=== PATIENT | female | born 1995 | race African-American/Black ===

== ENCOUNTER 2017-03-24 15:05 | Inpatient (IN) | payer OTHER ==
[2017-03-24 16:10] LABS: BASOPHIL 0.5 % (0-2.0); EOSINOPHIL 1.8 % (0-4.5); MCH 30.8 pg (25.7-33.7); MCHC 33.4 g/dl (32.0-36.0); MEAN CELL VOLUME 92.2 fl (80-96); MEAN PLT VOLUME 8.7 fl (7.5-11.1); NEUTROPHILS 56.9 % (42.8-82.8); PLATELET COUNT 205 K/MM3 (134-434); RDW 13.6 % (11.6-15.6); WHITE BLOOD COUNT 8.6 K/mm3 (4.0-10.0)
[2017-03-24 16:29] LABS: INR 0.86 (0.82-1.09); PROTHROMBIN TIME (PATIENT) 9.4 SEC (9.98-11.88)
[2017-03-24 16:32] LABS: ACTIVATED PTT 28.5 SECONDS (26.9-34.4)
[2017-03-24 16:41] LABS: URINE APPEARANCE CLOUDY; URINE BILIRUBIN NEGATIVE (NEGATIVE); URINE BLOOD NEGATIVE (NEGATIVE); URINE COLOR DKYELLOW; URINE GLUCOSE (UA) NEGATIVE (NEGATIVE); URINE KETONE NEGATIVE (NEGATIVE); URINE LEUK ESTERASE NEGATIVE (NEGATIVE); URINE NITRITE NEGATIVE (NEGATIVE); URINE UROBILINOGEN NEGATIVE mg/dL (0.2-1.0)
[2017-03-24] MEDS: ELECTROLYTE-148 SOLN 1,000 ML IV SCH (16:45)
[2017-03-24 16:47] LABS: URINE PROTEIN 3+ (NEGATIVE)
[2017-03-24 16:58] LABS: GRANULAR CASTS 3 /lpf; URINE BACTERIA RARE /hpf (NONE SEEN); URINE MUCUS FEW; URINE RBC 6 /hpf (0-3); URINE WBC 10 /hpf (3-5)
[2017-03-24] MEDS ORDERED: LABETALOL HCL 5 MG/1 ML (100MG/20 ML VIAL) IVPB ONE (17:00)
[2017-03-24] MEDS ORDERED: PROMETHAZINE HCL 25 MG/1 ML VIAL IVPB ONE (17:15)
[2017-03-24] MEDS: MAGNESIUM 4GM/H20 - 100 ML IVPB SCH (17:15)
[2017-03-24] MEDS ORDERED: BUTORPHANOL TARTRATE 1 MG/ML VIAL IVPB ONE (17:15)
--- NOTE | 2017-03-24 17:31 | HP ---
Past Medical History - Primary Care Physician PCP:: David Rey - Admission Chief Complaint: 34 weeks, severe pih History of Present Illness: 21yo f g1 p 0 34 weeks gestation, ltransfer aroun 29 weeks from [facility] to [facility], , seen in clinic today with elevated BP and headace., bp here 162/100. 130 /100, 3+ protein in urine , c/o headache, no blurred vision, no RUQ pain, History Source: Family Member Limitations to Obtaining History: Language Barrier - Past Surgical History Hx Myomectomy: No Hx Transabdominal Cerclage: No - Smoking History Have you smoked in the past 12 months: No - Alcohol/Substance Use Hx Alcohol Use: No - Social History Usual Living Arrangement: Yes: Alone History of Recent Travel: No Home Medications - Allergies Allergies/Adverse Reactions: Allergies Allergy/AdvReac Type Severity Reaction Status Date / Time No Known Allergies Allergy Verified 03/24/17 16:03 - Home Medications Home Medications: Ambulatory Orders Ferrous Sulfate [Feosol] 1 tab PO DAILY 03/24/17 Vit/Iron Fumarate/FA [ Tablet] 1 tab PO DAILY 03/24/17 Review of Systems - Review of Systems Constitutional: reports: Weakness Eyes: reports: No Symptoms HENT: reports: No Symptoms Neck: reports: No Symptoms Cardiovascular: reports: No Symptoms Respiratory: reports: No Symptoms Gastrointestinal: reports: No Symptoms Breasts: reports: No Symptoms Reported Musculoskeletal: reports: No Symptoms Integumentary: reports: No Symptoms Neurological: reports: Headache Endocrine: reports: No Symptoms Hematology/Lymphatic: reports: No Symptoms Psychiatric: reports: No Symptoms Physical Exam - Maternity Vital Signs: Vital Signs Temperature Pulse Rate 62 03/24/17 15:56 Respiratory Rate 18 03/24/17 15:56 Blood Pressure 162/100 03/24/17 15:56 O2 Sat by Pulse Oximetry (%) Constitutional: Yes: Other (swellen face) Eyes: Yes: WNL HENT: Yes: WNL Neck: Yes: WNL Cardiovascular: Yes: WNL Lungs: Clear to auscultation Breast(s): Yes: WNL - Abdominal Exam/OB Fundal Height: 34 Number of Fetuses: Single Presentation: Vertex Contractions: No Intensity: Unaware Heart Rate Location: [facility] Category: I Accelerations: Uniform Decelerations: None - Vaginal Exam/OB Vaginal Bleediing: No Speculum Exam: No Dilatation (cm): closed Effacement (%): 0 Amniotic Membrane Status: Intact Presentation: Vertex/Position Station: -4 - Physical Exam Musculoskeletal: Yes: WNL Extremities: Yes: WNL Edema: Yes Edema: LLE: 3+, RLE: 3+ Deep Tendon Reflex Grade: Normal but brisk +3 ...Motor Strength: WNL Psychiatric: Yes: WNL - Labs Lab Results: CBC, BMP 03/24/17 15:30 Problem List - Problems (1) with 34 completed weeks gestation Code(s): Z3A.34 - 34 WEEKS GESTATION OF (2) PIH ( induced hypertension), antepartum Code(s): O13.9 - GESTATIONAL HTN W/O SIGNIFICANT PROTEINURIA, UNSP TRIMESTER Assessment/Plan admit, monitor BP, Mg sulfate, labetalol to keep diastolic BP less than 105mmhg prn. nonfavarable cervix for induction, delivery advised, ullternatives and induction discussed risksand benfit discussed . risks of prematurity and complication discussed via hris coordinator
[2017-03-24 17:43] LABS: ALBUMIN 1.9 g/dl (3.4-5.0); ALK PHOS 128 U/L (45-117); ANION GAP 7 (8-16); BILIRUBIN,TOTAL 0.1 mg/dL (0.2-1.0); CALCIUM 8.8 mg/dL (8.5-10.1); CO2 24 mmol/L (21-32); CREATININE 0.8 mg/dL (0.55-1.02); GLUCOSE,RANDOM 74 mg/dL (74-106); SGOT/AST 18 U/L (15-37); SGPT/ALT 18 U/L (12-78); TOT PROT 5.1 g/dl (6.4-8.2)
[2017-03-24] MEDS: MAGNESIUM SULFATE 20GM/500ML - 500 ML IVPB SCH (17:45)
[2017-03-24] MEDS ORDERED: BETAMET ACET/BETAMET NA PH 30 MG/5 ML VIAL IM ONE (17:46)
[2017-03-24 17:47] LABS: URIC ACID 5.8 mg/dL (2.6-7.2)
[2017-03-24 18:04] VITALS: BMI 37.5
[2017-03-24 18:27] LABS: HIV 1 & 2 AB NEGATIVE; HIV 1 AGp24 NEGATIVE
[2017-03-25 01:43] LABS: URINE MARIJUANA THC NEGATIVE ng/ml (CUTOFF=50)
[2017-03-25] MEDS ORDERED: ONDANSETRON 4 MG/2 ML VIAL IVPB PRN (02:29)
[2017-03-25] MEDS ORDERED: oxyCODONE HCL 5 MG TABLET PO PRN (04:32)
[2017-03-25] MEDS ORDERED: BENZOCAINE 28 GM HEMORRHOIDAL OINTMENT PR PRN (04:32)
[2017-03-25] MEDS ORDERED: WITCH HAZEL 50% (TUCKS) 40 PAD/JAR PAD TP PRN (04:32)
[2017-03-25] MEDS ORDERED: diphenhydrAMINE HCL 25 MG CAPSULE (FP) PO PRN (04:32)
[2017-03-25] MEDS ORDERED: CITRIC ACID/SODIUM CITRATE 30 ML UNIT-DOSE CUP PO ONE (04:32)
[2017-03-25] MEDS ORDERED: METHYLERGONOVINE MALEATE 0.2 MG/1 ML AMP IM PRN (04:32)
[2017-03-25] MEDS ORDERED: BENZOCAINE 20% 57 GM BOTTLE TP PRN (04:32)
[2017-03-25] MEDS ORDERED: ACETAMINOPHEN 1000 MG/100 ML VIAL (NON FORMULARY) IVPB PRN (04:37)
[2017-03-25 04:44] LABS: VENOUS BLOOD GAS HCO3 22.1 meq/L (19-25); VENOUS PH 7.32 (7.32-7.42)
[2017-03-25] MEDS ORDERED: DEXTROSE 5%-LACTATED RINGERS 1,000 ML IV SCH (04:45)
[2017-03-25 04:46] LABS: ALLENS TEST POSITIVE; ARTERIAL BLD GAS O2 SATURATION 16.4 % (90-98.9); ARTERIAL BLOOD GAS BASE EXCESS -4.2 meq/l (-2-2); ARTERIAL BLOOD GAS HCO3 22.9 meq/L (22-26); ARTERIAL BLOOD GAS pH 7.28 (7.35-7.45)
[2017-03-25] MEDS: OXYTOCIN 20 UNITS in 0.9% NS 1,000 ML IV SCH ×2 (06:00→09:32)
--- NOTE | 2017-03-25 08:15 | OP ---
DATE OF OPERATION: 03/25/2017 PREOPERATIVE DIAGNOSIS: , 34 weeks, severe -induced hypertension. POSTOPERATIVE DIAGNOSIS: , 34 weeks, severe -induced hypertension. PROCEDURE: Primary low-segment transverse section. SURGEON: Jp Smith MD MOPHEAD SEWER: CHARLENE Tucker ANESTHESIA: Spinal. ANESTHESIOLOGIST: João Gandhi DO ESTIMATED BLOOD LOSS: 500 mL FINDING: A live baby, Apgars 9 and 9, ROT position, cord around the neck x1. DESCRIPTION OF OPERATION: Patient was taken to the operating room. Under adequate spinal anesthesia, abdomen and perineum were prepped and draped. Pfannenstiel abdominal skin incision was made. Abdominal wall was cut layer by layer until peritoneum was exposed and incised. Upon entering the abdominal cavity, lower uterine segment was identified and uterovesical fold of peritoneum established. Bladder was pushed down. Then, with the lower blade of the Elton retractor in the pelvis, a low transverse uterine incision was made. Incision extended laterally. Amniotic sac was entered; clear fluid; minimal amniotic fluid was noted. Head delivered. Nasopharynx was suctioned. Cord around the neck x1 reduced and live baby was delivered without any difficulty. Placenta was delivered manually. Uterine cavity was cleaned out of remaining tissue. Uterine incision was closed in 2 layers, first layer with 0 Biosyn continuous suture, the second layer with 0 Biosyn imbricating the first layer. Bladder flap was closed with 0 Biosyn continuous suture. Both tubes and ovaries were checked, were normal. No active bleeding was seen. All the lap pads, sponge, and instrument counts were correct. Then, peritoneum was closed with 0 Biosyn continuous suture. Muscles were brought together with interrupted suture of 0 Biosyn. Fascia was closed with 0 Biosyn continuous suture, subcutaneous fat with interrupted suture of 0 Biosyn, and the skin was closed with todd. Patient tolerated the procedure well, left the OR in good condition. JP SMITH M.D. [id number]
[2017-03-25] MEDS: LABETALOL HCL 200 MG TABLET (FP) PO PRN ×2 (08:32→16:03)
[2017-03-25] MEDS: CEFAZOLIN 1 GM/D5W 50 ML IVPB SCH ×2 (09:32→18:26)
--- NOTE | 2017-03-25 12:31 | CON.NEP ---
Consult Consult Specialty:: Nephrology (Jhony/Lucio) Referred by:: Dr. Rodriguez Reason for Consultation:: Hypertension - History of Present Illness Chief Complaint: 34 weeks gestation with elevated BP History of Present Illness: This is a 21 year old woman with PMhx of Migraines who presented at 34 weeks gestation with elevated BP on outpatient OB visit and referred to the ED now s/ p for Preeclampsia with hypertension. Pt does not speak Polish. History obtained from the sister. No Hx of hypertension, no family Hx of hypertension. No N/V/D. No NSAID use. On IV magnesium and given Labetalol this am. 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 - Alcohol/Substance Use Hx Alcohol Use: No - Smoking History Smoking history: Never smoked Have you smoked in the past 12 months: No - Social History History of Recent Travel: No Home Medications - Allergies Allergies/Adverse Reactions: Allergies Allergy/AdvReac Type Severity Reaction Status Date / Time No Known Allergies Allergy Verified 03/24/17 16:03 - Home Medications Home Medications: Ambulatory Orders Ferrous Sulfate [Feosol] 1 tab PO DAILY 03/24/17 Vit/Iron Fumarate/FA [ Tablet] 1 tab PO DAILY 03/24/17 Family Disease History - Family Disease History Family History: Unremarkable Review of Systems Unable to obtain ROS, reason: because of language barri Nephrology Consult - Height Height: 5 ft 7 in - Weight Weight: 240 lb - BMI Body Mass Index (BMI): 37.5 - Lab Results CBC,BMP: CBC, BMP 03/24/17 15:30 03/24/17 15:30 Anion Gap: Anion Gap Anion Gap 7 (8-16) L 03/24/17 15:30 - Physical Examination Vital Signs: Vital Signs Temperature 98.1 F 03/25/17 10:00 Pulse Rate 80 03/25/17 11:00 Respiratory Rate 20 03/25/17 12:00 Blood Pressure 123/69 03/25/17 11:00 O2 Sat by Pulse Oximetry (%) 100 03/25/17 06:30 Constitutional: Yes: No Distress, Calm HENT: Yes: Atraumatic, Normocephalic Neck: Yes: Supple Cardiovascular: Yes: Regular Rate and Rhythm Respiratory: Yes: Regular. No: On Nasal O2, SOB Gastrointestinal: Yes: Soft Renal/: No: Bladder Distention Extremities: No: Cold, Cool, Cyanosis Edema: No Neurological: Yes: Alert, Oriented Problem List - Problems (1) with 34 completed weeks gestation Code(s): Z3A.34 - 34 WEEKS GESTATION OF (2) Preeclampsia Code(s): O14.90 - UNSPECIFIED PRE-ECLAMPSIA, UNSPECIFIED TRIMESTER (3) Proteinuria Code(s): R80.9 - PROTEINURIA, UNSPECIFIED (4) hypertension Code(s): O16.5 - UNSPECIFIED MATERNAL HYPERTENSION, COMP THE PUERPERIUM Assessment/Plan 21 year old woman with PMhx of Migraines who presented at 34 weeks gestation with elevated BP on outpatient OB visit and referred to the ED now s/p C- section for Preeclampsia with hypertension. # Hypertension secondary to preeclampsia no evidence of HELLP syndrome (normal plts, normal LFTs) Urine studies show 3+ protein, check UPCR On IV Mg sulfate gtt, to be tapered as per OB Continue Labetalol 200mg Q6h PRN for SBP > 140 or DBP > 90 pain control w/o nsaids Monitor BP closely Will follow thank you David Valdes DO
[2017-03-26] MEDS: LABETALOL HCL 200 MG TABLET (FP) PO PRN ×4 (02:13→22:06)
[2017-03-26] MEDS: ELECTROLYTE-148 SOLN 1,000 ML IV SCH (02:43)
[2017-03-26] MEDS: MAGNESIUM SULFATE 20GM/500ML - 500 ML IVPB SCH (02:43)
[2017-03-26] MEDS: MAGNESIUM 4GM/H20 - 100 ML IVPB SCH (02:43)
[2017-03-26] MEDS ORDERED: BISACODYL 10 MG SUPP.RECT RC PRN (04:33)
[2017-03-26 07:48] LABS: BASOPHIL 0.6 % (0-2.0); EOSINOPHIL 0.1 % (0-4.5); MCH 30.9 pg (25.7-33.7); MEAN CELL VOLUME 93.4 fl (80-96); NEUTROPHILS 75.9 % (42.8-82.8); PLATELET COUNT 263 K/MM3 (134-434); RDW 14.1 % (11.6-15.6); WHITE BLOOD COUNT 14.7 K/mm3 (4.0-10.0)
[2017-03-26] MEDS: oxyCODONE HCL 5 MG TABLET PO PRN (11:32)
--- NOTE | 2017-03-26 13:04 | PN ---
Progress Note (short form) - Note Progress Note: pod 1 , PIH s/p c/s no c/o doing well, no headache, no blurred vision abdomen soft, no distension, no cva no RUQ tenderness no calf tendernes lochia mild ext 1+edema, DTR normal plan monitor BP, ambulate, labatalol prn, CBC, BMP 03/26/17 07:35 03/24/17 15:30 Last Vital Signs Temp Pulse Resp BP Pulse Ox 98.6 F 75 20 137/78 100 03/26/17 07:52 03/26/17 11:00 03/26/17 11:00 03/26/17 11:00 03/25/17 06:30 Problem List - Problems (1) with 34 completed weeks gestation Code(s): Z3A.34 - 34 WEEKS GESTATION OF (2) PIH ( induced hypertension), antepartum Code(s): O13.9 - GESTATIONAL HTN W/O SIGNIFICANT PROTEINURIA, UNSP TRIMESTER
[2017-03-26] MEDS ORDERED: ACETAMINOPHEN 325 MG TABLET (FP) PO ONE (13:20)
--- NOTE | 2017-03-26 16:48 | PN ---
Progress Note (short form) - Note Progress Note: Anesthesiology post op check S/p c section post op day 1 under spinal anesthesia with duramorph for post op pain control Patient reports adequate pain control, no nausea or vomiting and full return of motor function. Vital Signs Temperature 98.6 F 03/26/17 07:52 Pulse Rate 66 03/26/17 14:01 Respiratory Rate 20 03/26/17 14:01 Blood Pressure 147/92 03/26/17 14:01 O2 Sat by Pulse Oximetry (%) 100 03/25/17 06:30 No sign of neurologic deficits A/P no adverse effects of anesthetic, dept of anesthesia will sign off care at this time, Feel free to re consult the department with further questions or concerns regarding pain or the anesthetic administered.
[2017-03-26] MEDS: ACETAMINOPHEN 325 MG TABLET (FP) PO PRN (19:46)
[2017-03-26] MEDS: SIMETHICONE 80 MG TAB.CHEW (FP) PO PRN (19:47)
[2017-03-27] MEDS: LABETALOL HCL 200 MG TABLET (FP) PO PRN ×4 (03:54→22:02)
[2017-03-27] MEDS: SIMETHICONE 80 MG TAB.CHEW (FP) PO PRN ×3 (08:00→22:01)
[2017-03-27] MEDS: oxyCODONE HCL 5 MG TABLET PO PRN ×3 (08:00→22:03)
[2017-03-27] MEDS: ACETAMINOPHEN 325 MG TABLET (FP) PO PRN ×3 (08:00→22:02)
--- NOTE | 2017-03-27 08:37 | PN ---
Progress Note (short form) - Note Progress Note: Renal Follow up for hypertension Pt seen and examined at the bedside no acute complaints denies any SHELDON, SOB, CP BP remains elevated Vital Signs Temperature 97.6 F 03/27/17 05:00 Pulse Rate 82 03/27/17 05:00 Respiratory Rate 20 03/27/17 05:00 Blood Pressure 145/93 03/27/17 05:00 O2 Sat by Pulse Oximetry (%) 100 03/25/17 06:30 Gen: NAD Ext: No edema CBC, BMP 03/26/17 07:35 03/24/17 15:30 Current Medications Acetaminophen (Tylenol -) 650 mg PO Q6H PRN PRN Reason: FEVER OR PAIN Last Admin: 03/27/17 08:00 Dose: 650 mg Benzocaine (Americaine Ointment -) 1 applic [place] PRN PRN PRN Reason: PAIN Benzocaine (Americaine 20% [place] -) 1 spray TP PRN PRN PRN Reason: PAIN Bisacodyl (Dulcolax Suppository -) 10 mg RC PRN PRN PRN Reason: CONSTIPATION Diphenhydramine HCl (Benadryl -) 25 mg PO Q8H PRN PRN Reason: FOR ITCHING Labetalol HCl (Normodyne -) 300 mg PO Q6H PRN PRN Reason: HYPERTENSION Methylergonovine Maleate (Methergine Injection -) 0.2 mg IM Q4H PRN PRN Reason: EXCESSIVE BLEEDING Oxycodone HCl (Roxicodone -) 5 mg PO Q4H PRN PRN Reason: PAIN LEVEL 1-5 Last Admin: 03/27/17 08:00 Dose: 5 mg Oxycodone HCl (Roxicodone -) 10 mg PO Q4H PRN PRN Reason: PAIN LEVEL 6-10 Last Admin: 03/26/17 19:45 Dose: 10 mg Senna/Docusate Sodium (Pericolace -) 2 tablet PO HS PRN PRN Reason: CONSTIPATION Simethicone (Mylicon -) 80 mg PO Q4H PRN PRN Reason: GAS Last Admin: 03/27/17 08:00 Dose: 80 mg Witch Corrine/Glycerin (Tucks Pads -) 1 pad TP PRN PRN PRN Reason: PAIN 21 year old woman with PMhx of Migraines who presented at 34 weeks gestation with elevated BP on outpatient OB visit and referred to the ED now s/p C- section for Preeclampsia with hypertension. # Hypertension secondary to preeclampsia BP remains above goal Will increase PRN Labetalol to 300mg Q6h Goal BP <140/90 avoid NSAIDs if possible Low salt diet Will follow thank you David Valdes DO Problem List - Problems (1) with 34 completed weeks gestation Code(s): Z3A.34 - 34 WEEKS GESTATION OF (2) Preeclampsia Code(s): O14.90 - UNSPECIFIED PRE-ECLAMPSIA, UNSPECIFIED TRIMESTER (3) Proteinuria Code(s): R80.9 - PROTEINURIA, UNSPECIFIED (4) hypertension Code(s): O16.5 - UNSPECIFIED MATERNAL HYPERTENSION, COMP THE PUERPERIUM
--- NOTE | 2017-03-27 10:44 | PN ---
Progress Note (short form) - Note Progress Note: pod 2 ambulating, passing gas , no headache CBC, BMP 03/26/17 07:35 03/24/17 15:30 Last Vital Signs Temp Pulse Resp BP Pulse Ox 99.3 F 77 20 145/98 100 03/27/17 09:00 03/27/17 09:00 03/27/17 05:00 03/27/17 09:00 03/25/17 06:30 abdomen soft, no RUQ tenderness , no distension, no cva uterus firm, mild tenderness ext 1+ edema no calf tenderness impression PIH , BP still elevated , asymptomatic plan increase labatalol , monitor BP Problem List - Problems (1) with 34 completed weeks gestation Code(s): Z3A.34 - 34 WEEKS GESTATION OF (2) PIH ( induced hypertension), antepartum Code(s): O13.9 - GESTATIONAL HTN W/O SIGNIFICANT PROTEINURIA, UNSP TRIMESTER
[2017-03-27] MEDS: SENNOSIDES/DOCUSATE COMBO (SENNA PLUS) TABLET (UD) PO PRN (22:02)
[2017-03-28] MEDS: LABETALOL HCL 200 MG TABLET (FP) PO PRN (06:14)
[2017-03-28] MEDS: ACETAMINOPHEN 325 MG TABLET (FP) PO PRN ×3 (06:15→21:35)
[2017-03-28] MEDS: oxyCODONE HCL 5 MG TABLET PO PRN ×3 (06:15→21:36)
[2017-03-28 07:13] LABS: BASOPHIL 0.3 % (0-2.0); EOSINOPHIL 2.6 % (0-4.5); MCH 31.3 pg (25.7-33.7); MCHC 33.6 g/dl (32.0-36.0); MEAN PLT VOLUME 8.2 fl (7.5-11.1); NEUTROPHILS 60.4 % (42.8-82.8); PLATELET COUNT 250 K/MM3 (134-434); RDW 14.3 % (11.6-15.6)
--- NOTE | 2017-03-28 07:50 | PN ---
Progress Note (short form) - Note Progress Note: ppd 1 no c/o no headache, no blurred vision CBC, BMP 03/28/17 06:45 03/24/17 15:30 abdomen soft, non tender , no RUQ tenderness incision dry, clean no calf tenderness DTR normal Last Vital Signs Temp Pulse Resp BP Pulse Ox 97.2 F L 65 20 135/87 100 03/27/17 22:00 03/28/17 06:00 03/27/17 22:00 03/28/17 06:00 03/25/17 06:30 pod 3 PIH bp better today will monitor BP if stable will d/c home in am Problem List - Problems (1) with 34 completed weeks gestation Code(s): Z3A.34 - 34 WEEKS GESTATION OF (2) PIH ( induced hypertension), antepartum Code(s): O13.9 - GESTATIONAL HTN W/O SIGNIFICANT PROTEINURIA, UNSP TRIMESTER
[2017-03-28] MEDS ORDERED: NIFEdipine E.R. 30 MG TABLET (FP) PO ONE (08:30)
[2017-03-28] MEDS ORDERED: LABETALOL HCL 200 MG TABLET (FP) PO PRN ×2 (11:23→12:28)
--- NOTE | 2017-03-28 12:27 | PN ---
Progress Note (short form) - Note Progress Note: Renal Follow up for hypertension Pt seen and examined at the bedside complains of headache BP remained elevated overnight Vital Signs Temperature 97.6 F 03/27/17 05:00 Pulse Rate 82 03/27/17 05:00 Respiratory Rate 20 03/27/17 05:00 Blood Pressure 145/93 03/27/17 05:00 O2 Sat by Pulse Oximetry (%) 100 03/25/17 06:30 Gen: NAD Ext: No edema CBC, BMP 03/26/17 07:35 03/24/17 15:30 Current Medications Acetaminophen (Tylenol -) 650 mg PO Q6H PRN PRN Reason: FEVER OR PAIN Last Admin: 03/27/17 08:00 Dose: 650 mg Benzocaine (Americaine Ointment -) 1 applic [place] PRN PRN PRN Reason: PAIN Benzocaine (Americaine 20% [place] -) 1 spray TP PRN PRN PRN Reason: PAIN Bisacodyl (Dulcolax Suppository -) 10 mg RC PRN PRN PRN Reason: CONSTIPATION Diphenhydramine HCl (Benadryl -) 25 mg PO Q8H PRN PRN Reason: FOR ITCHING Labetalol HCl (Normodyne -) 300 mg PO Q6H PRN PRN Reason: HYPERTENSION Methylergonovine Maleate (Methergine Injection -) 0.2 mg IM Q4H PRN PRN Reason: EXCESSIVE BLEEDING Oxycodone HCl (Roxicodone -) 5 mg PO Q4H PRN PRN Reason: PAIN LEVEL 1-5 Last Admin: 03/27/17 08:00 Dose: 5 mg Oxycodone HCl (Roxicodone -) 10 mg PO Q4H PRN PRN Reason: PAIN LEVEL 6-10 Last Admin: 03/26/17 19:45 Dose: 10 mg Senna/Docusate Sodium (Pericolace -) 2 tablet PO HS PRN PRN Reason: CONSTIPATION Simethicone (Mylicon -) 80 mg PO Q4H PRN PRN Reason: GAS Last Admin: 03/27/17 08:00 Dose: 80 mg Witch Corrine/Glycerin (Tucks Pads -) 1 pad TP PRN PRN PRN Reason: PAIN 21 year old woman with PMhx of Migraines who presented at 34 weeks gestation with elevated BP on outpatient OB visit and referred to the ED now s/p C- section for Preeclampsia with hypertension. # Hypertension secondary to preeclampsia BP is > 150/100 despite Labetalol Will given Procardia xL 30mg Po x 1 this morning Continue Labetalol 200mg Q6h PRN for BP > 150/90 if BP remains above goal will redose Procardia this evening. Thank you David Valdes DO Problem List - Problems (1) with 34 completed weeks gestation Code(s): Z3A.34 - 34 WEEKS GESTATION OF (2) Preeclampsia Code(s): O14.90 - UNSPECIFIED PRE-ECLAMPSIA, UNSPECIFIED TRIMESTER (3) Proteinuria Code(s): R80.9 - PROTEINURIA, UNSPECIFIED (4) hypertension Code(s): O16.5 - UNSPECIFIED MATERNAL HYPERTENSION, COMP THE PUERPERIUM
--- NOTE | 2017-03-28 15:09 | PATH ---
Surgical Pathology Report Patient Name: JOSEFINA AKHTAR Med. Rec. #: [id number] /Age/Gender: 1995 (Age: 21) / F Account: [id number] Location: DELIVERY ROOM Taken: 03/24/2017 Received: 03/25/2017 Reported: 03/28/2017 Physicians: David Rey M.D. Specimen(s) Received PLACENTA Clinical History , 34 weeks; Primary c/section for preeclampsia Final Diagnosis PLACENTA, DELIVERY: INTACT, SMALL (<400 GM), THIRD TRIMESTER PLACENTA WITH MILD TO MODERATE INCREASE IN PREVILLOUS, PERIVILLOUS, AND PRECHORIONIC FIBRIN DEPOSITION, THREE VESSEL UMBILICAL CORD, AND PLACENTAL MEMBRANES WITH FOCAL AMNION HYPERPLASIA AND SQUAMOUS METAPLASIA (AMNION NODOSUM). Electronically Signed Franklin Patel M.D. Gross Description The specimen is received fresh, labeled "placenta" and is a 310 gram, 15.0 x 14.5 x 2.3 cm placenta with attached membranes and umbilical cord. The attached membranes are mccray, translucent with focal opacities and insert marginally. The umbilical cord measures 19 cm in length and averages 1 cm in diameter. The cord inserts eccentrically, 3.5 cm to the nearest margin. No true knots or strictures are identified. Cut surface of the umbilical cord reveals 3 vessels. The surface is zuniga-blue with fibrin deposition and appropriate caliber vessels. The maternal surface is red-brown and intact. Sectioning reveals red-brown, spongy parenchyma. No focal lesions are identified. Rail Washer sections are submitted in three cassettes as follows: 1- membrane rolls and umbilical cord; 2-3- full thickness sections of placenta. 03/25/201703/25/2017
[2017-03-28] MEDS: SIMETHICONE 80 MG TAB.CHEW (FP) PO PRN (21:36)
[2017-03-28] MEDS: SENNOSIDES/DOCUSATE COMBO (SENNA PLUS) TABLET (UD) PO PRN (21:36)
[2017-03-29] MEDS: SIMETHICONE 80 MG TAB.CHEW (FP) PO PRN (05:55)
[2017-03-29] MEDS: oxyCODONE HCL 5 MG TABLET PO PRN (05:56)
--- NOTE | 2017-03-29 11:12 | PN ---
Progress Note (short form) - Note Progress Note: Renal Follow up for hypertension Pt seen and examined at the bedside no acute complaints for discharge home today Gen: NAD Ext: 1+ edema in feet CBC, BMP 03/28/17 06:45 03/24/17 15:30 Current Medications Acetaminophen (Tylenol -) 650 mg PO Q6H PRN PRN Reason: FEVER OR PAIN Last Admin: 03/28/17 21:35 Dose: 650 mg Benzocaine (Americaine Ointment -) 1 applic [place] PRN PRN PRN Reason: PAIN Benzocaine (Americaine 20% [place] -) 1 spray TP PRN PRN PRN Reason: PAIN Bisacodyl (Dulcolax Suppository -) 10 mg RC PRN PRN PRN Reason: CONSTIPATION Diphenhydramine HCl (Benadryl -) 25 mg PO Q8H PRN PRN Reason: FOR ITCHING Labetalol HCl (Normodyne -) 200 mg PO Q6H PRN PRN Reason: HYPERTENSION Last Admin: 03/28/17 17:44 Dose: 200 mg Methylergonovine Maleate (Methergine Injection -) 0.2 mg IM Q4H PRN PRN Reason: EXCESSIVE BLEEDING Nifedipine (Procardia Xl -) 30 mg PO DAILY NATTY Oxycodone HCl (Roxicodone -) 5 mg PO Q4H PRN PRN Reason: PAIN LEVEL 1-5 Last Admin: 03/29/17 05:56 Dose: 5 mg Oxycodone HCl (Roxicodone -) 10 mg PO Q4H PRN PRN Reason: PAIN LEVEL 6-10 Last Admin: 03/26/17 19:45 Dose: 10 mg Senna/Docusate Sodium (Pericolace -) 2 tablet PO HS PRN PRN Reason: CONSTIPATION Last Admin: 03/28/17 21:36 Dose: 2 tablet Simethicone (Mylicon -) 80 mg PO Q4H PRN PRN Reason: GAS Last Admin: 03/29/17 05:55 Dose: 80 mg Witch Corrine/Glycerin (Tucks Pads -) 1 pad TP PRN PRN PRN Reason: PAIN 21 year old woman with PMhx of Migraines who presented at 34 weeks gestation with elevated BP on outpatient OB visit and referred to the ED now s/p C- section for Preeclampsia with hypertension. # Hypertension secondary to preeclampsia BP improved and consistely less then 150/100 stable for discharge home on Procarida XL 30mg Daily Low salt diet at home minimize nsaid use To follow up in 1 week in our office for BP monitoring Thank you for allowing us to take part in the care of this patient David Escobedoji Problem List - Problems (1) with 34 completed weeks gestation Code(s): Z3A.34 - 34 WEEKS GESTATION OF (2) Preeclampsia Code(s): O14.90 - UNSPECIFIED PRE-ECLAMPSIA, UNSPECIFIED TRIMESTER (3) Proteinuria Code(s): R80.9 - PROTEINURIA, UNSPECIFIED (4) hypertension Code(s): O16.5 - UNSPECIFIED MATERNAL HYPERTENSION, COMP THE PUERPERIUM
[2017-03-29] MEDS ORDERED: NIFEdipine E.R. 30 MG TABLET (FP) PO SCH (11:30)
--- NOTE | 2017-03-29 12:18 | PN ---
Post Progress Note - Subjective Subjective: 21 yo Para 1, with Pre Eclampsia, status post primary , seen and evaluated. She was seen by Medical Assistant Per Diem whom she will follow up as outpatient for blood pressure control. She denies any headache nor epigastric pain. Post Day: 4 Type of Delivery: Primary C/S Vital Signs: Vital Signs Temperature 98.3 F 03/28/17 21:00 Pulse Rate 75 03/29/17 05:00 Respiratory Rate 18 03/28/17 21:00 Blood Pressure 147/82 03/29/17 05:00 O2 Sat by Pulse Oximetry (%) 100 03/25/17 06:30 Breast Exam: Yes: Soft Uterus: Yes: Fundus Firm Incision: Yes: [place] intact Abdomen/GI: Yes: Abdomen soft, Tolerating PO Lochia: Yes: Rubra Lochia, amount: Small Extremities: Yes: Calves non-tender Perineum: Yes: Intact Activity: Ambulating - Labs Labs: CBC WBC 9.0 K/mm3 (4.0-10.0) D 03/28/17 06:45 RBC 3.35 M/mm3 (3.60-5.2) L 03/28/17 06:45 Hgb 10.5 GM/dL (10.7-15.3) L 03/28/17 06:45 Hct 31.2 % (32.4-45.2) L 03/28/17 06:45 MCV 93.0 fl (80-96) 03/28/17 06:45 MCH 31.3 pg (25.7-33.7) 03/28/17 06:45 MCHC 33.6 g/dl (32.0-36.0) 03/28/17 06:45 RDW 14.3 % (11.6-15.6) 03/28/17 06:45 Plt Count 250 K/MM3 (134-434) 03/28/17 06:45 MPV 8.2 fl (7.5-11.1) 03/28/17 06:45 Neutrophils % 60.4 % (42.8-82.8) D 03/28/17 06:45 Lymphocytes % 30.1 % (8-40) D 03/28/17 06:45 Monocytes % 6.6 % (3.8-10.2) 03/28/17 06:45 Eosinophils % 2.6 % (0-4.5) D 03/28/17 06:45 Basophils % 0.3 % (0-2.0) 03/28/17 06:45 Retic Count 1.67 % (0.5-1.5) H 03/24/17 15:30 Haptoglobin 72 mg/dL (34-200) 03/24/17 15:30 Assessment/Plan Pre Eclampsia Status post D/C Home Follow up with Medical Assistant Per Diem F/U in clinic in one week
[2017-03-29 14:34] VITALS: PULSE 76; TEMP 99
[2017-03-29 15:50] VITALS: BP 147/88
== END 2017-03-29 14:15 | disposition home or self-care (01) | DRG 561 ==
LOC: JDEL 15:05 → JLDR 16:08 → J3N 03-26 01:55 → J3W 03-27 13:22
PROVIDERS: ADMIT Obstetrics & Gynecology; ATTEND Obstetrics & Gynecology
DX: O90.89 Other complications of the puerperium, not elsewhere classified (principal); R07.89 Other chest pain
CPT/HCPCS: 36415; 36600; 80053; 80307; 81003; 81015; 82570; 82803; 82977; 83010; 83735; 84156; 84550; 85025; 85044; 85461; 85610; 85730; 86593; 86850; 86900; 86901; 86999; 87389; 88307-TC; 96372

== ENCOUNTER 2017-03-31 11:40 | Emergency (ER) | payer OTHER ==
[2017-03-31 11:51] VITALS: TEMP 98.2; BMI 36.1
--- NOTE | 2017-03-31 12:18 | PDOC ---
History of Present Illness - General History Source: Patient Exam Limitations: No Limitations - History of Present Illness Initial Comments: The patient is a 21 yo F post s/p Tuesday @ 34 weeks gestation for pre eclampsia. The patients baby is still in NICU. The patient presents with epigastric and lower chest pain since yesterday that she describes as sharp and radiating to her back. She states the pain is waxing and waning in intensity. The patient denies modifying factors. The patient states she experienced GERD during which felt very different. No nausea, vomiting or diarrhea. No fevers, chills and cough. <Parisa Huang - Last Filed: 03/31/17 12:47> - General History Source: Patient, Old Records Exam Limitations: Language Barrier (history taken via document reviewer) <Sheryl Rdz - Last Filed: 03/31/17 16:17> - General Chief Complaint: Chest Pain Stated Complaint: CHEST PAIN Time Seen by Provider: 03/31/17 12:10 Past History <Parisa Huang - Last Filed: 03/31/17 12:47> - Past Medical History Asthma: No Cancer: No Cardiac Disorders: No Diabetes: No HTN: No Seizures: No Thyroid Disease: No Other medical history: migraines, preeclampsia - Immunization History Immunization Up to Date: Yes - Psycho/Social/Smoking Cessation Hx Suicidal Ideation: No Smoking History: Never smoked Have you smoked in the past 12 months: No Hx Alcohol Use: No Drug/Substance Use Hx: No Hx Substance Use Treatment: No <Sheryl Rdz - Last Filed: 03/31/17 16:17> - Past Medical History Allergies/Adverse Reactions: Allergies Allergy/AdvReac Type Severity Reaction Status Date / Time No Known Allergies Allergy Verified 03/31/17 11:43 Home Medications: Ambulatory Orders Nifedipine ER [Procardia Xl -] 30 mg PO DAILY #30 tab.er.24 03/31/17 Review of Systems - Review of Systems Able to Perform ROS?: Yes Comments:: CONSTITUTIONAL: Absent: fever, chills, diaphoresis, generalized weakness, malaise, loss of appetite HEENT: Absent: rhinorrhea, nasal congestion, throat pain, throat swelling, difficulty swallowing, mouth swelling, ear pain, eye pain, visual Changes CARDIOVASCULAR: +chest pain Absent: syncope, palpitations, irregular heart rate, lightheadedness, peripheral edema RESPIRATORY: Absent: cough, shortness of breath, dyspnea with exertion, orthopnea, wheezing, stridor, hemoptysis GASTROINTESTINAL: Absent: abdominal pain, abdominal distension, nausea, vomiting, diarrhea, constipation, melena, hematochezia GENITOURINARY: Absent: dysuria, frequency, urgency, hesitancy, hematuria, flank pain, genital pain MUSCULOSKELETAL: Absent: myalgia, arthralgia, joint swelling SKIN: Absent: rash, itching, pallor NEUROLOGIC: Absent: headache, focal weakness or paresthesias, dizziness, unsteady gait, seizure, mental status changes, bladder or bowel incontinence PSYCHIATRIC: Absent: anxiety, depression, suicidal or homicidal ideation, hallucinations. <Parisa Huang - Last Filed: 03/31/17 12:47> *Physical Exam - Vital Signs Last Vital Signs Temp Pulse Resp BP Pulse Ox 98.2 F 94 H 20 147/92 100 03/31/17 11:43 03/31/17 11:43 03/31/17 11:43 03/31/17 11:43 03/31/17 11:43 - Physical Exam Comments: GENERAL: Well-appearing, well-nourished. No apparent distress. HEENT: Normocephalic, atraumatic. PERRL, EOM intact. CARDIOVASCULAR: Normal S1, S2. Regular rate and rhythm. PULMONARY: Clear to auscultation bilaterally. ABDOMEN: Soft, non-distended, tenderness to epigastric region. C section todd present and intact. EXTREMITIES: Normal ROM in all four extremities. No gross deformities. SKIN: Warm, dry. No rash NEUROLOGICAL: No focal neurological deficits. <Parisa Huang - Last Filed: 03/31/17 12:47> - Vital Signs Last Vital Signs Temp Pulse Resp BP Pulse Ox 98.2 F 94 H 20 147/92 100 03/31/17 11:43 03/31/17 11:43 03/31/17 11:43 03/31/17 11:43 03/31/17 11:43 <Sheryl Rdz - Last Filed: 03/31/17 16:17> ED Treatment Course - LABORATORY CBC & Chemistry Diagram: 03/31/17 12:05 03/31/17 12:05 - ADDITIONAL ORDERS Additional order review: 03/31/17 12:05 RBC 3.93 MCV 92.9 MCHC 33.1 RDW 14.0 MPV 7.7 Neutrophils % 65.0 Lymphocytes % 26.0 Monocytes % 5.3 Eosinophils % 3.2 Basophils % 0.5 - Medications Given in the ED: ED Medications Discontinued Medications Generic Name Dose Route Start Last Admin Trade Name Mirna PRN Reason Stop Dose Admin Al Hydroxide/Mg Hydroxide 30 ml 03/31/17 12:19 03/31/17 12:35 Mylanta Suspension - PO 03/31/17 12:20 30 ml ONCE ONE Administration <Parisa Huang - Last Filed: 03/31/17 12:47> - LABORATORY CBC & Chemistry Diagram: 03/31/17 12:05 03/31/17 12:05 <Sheryl Rdz - Last Filed: 03/31/17 16:17> Medical Decision Making - Medical Decision Making 03/31/17 12:42 21-year-old female who is 5 days status post for preeclampsia at 34 weeks presents the emergency Department with complaints of epigastric and chest pain 2 days. She is saturating well and is hemodynamically stable. Differential diagnosis includes but is not limited to: ACS, PE, pneumonia, GERD, electrolyte abnormality, toxic/metabolic derangement. Plan: 1. EKG 2. Chest x-ray 3. Labs 4. Observe and reevaluate 5. Maalox 03/31/17 15:35 Addendum: Labs were reviewed and are noted in the EMR. The d-dimer was elevated therefore CT chest was perofrmed and was negative for PE; focused bedside ultrasound was negative for pericardial fluid. Will discharge home with Rx for procardia XL 30 mg daily as recommended during her hospital admission. <Sheryl Rdz - Last Filed: 03/31/17 16:17> *DC/Admit/Observation/Transfer - Attestations Scribe Attestion: Documentation prepared by Parisa Huang, acting as certified court/medical interpreter for Sheryl Rdz MD, MD/DO. <Parisa Huang - Last Filed: 03/31/17 12:47> - Discharge Dispostion Admit: No - Attestations Physician Attestion: 03/31/17 15:37 I, Dr. Sheryl Rdz, attest that the scribes documentation that appears above has been prepared under my direction and personally reviewed by me in its entirety. I confirmed that the note above accurately reflects all work, treatment, procedures, and medical decision-making performed by me. <Sheryl Rdz - Last Filed: 03/31/17 16:17> Diagnosis at time of Disposition: Chest pain, Epigastric pain, hypertension Diagnosis at time of Disposition: (Ruled Out): Preeclampsia - Discharge Dispostion Disposition: HOME Condition at time of disposition: Stable - Prescriptions Prescriptions: Nifedipine ER [Procardia Xl -] 30 mg PO DAILY #30 tab.er.24 - Patient Instructions Printed Discharge Instructions: DI for Atypical Chest Pain Additional Instructions: You are being prescribed Procardia XL 30mg-take one tablet daily as recommended by your physician. Follow-up with your homoeopath and primary carephysician as scheduled. Return to the ED if your symptoms persist, worsen or new symptoms arise.
[2017-03-31] MEDS ORDERED: MAG HYDROX/AL HYDROX/SIMETH 355 ML ORAL.SUSP PO ONE (12:19)
[2017-03-31] MEDS ORDERED: MAG HYDROX/AL HYDROX/SIMETH 30 ML UNIT-DOSE CUP ONE (12:27)
[2017-03-31 12:31] LABS: BASOPHIL 0.5 % (0-2.0); EOSINOPHIL 3.2 % (0-4.5); MCH 30.8 pg (25.7-33.7); MCHC 33.1 g/dl (32.0-36.0); MEAN CELL VOLUME 92.9 fl (80-96); MEAN PLT VOLUME 7.7 fl (7.5-11.1); PLATELET COUNT 335 K/MM3 (134-434); WHITE BLOOD COUNT 7.4 K/mm3 (4.0-10.0)
[2017-03-31 13:17] LABS: ALBUMIN 2.1 g/dl (3.4-5.0); ANION GAP 7 (8-16); BILIRUBIN,TOTAL 0.2 mg/dL (0.2-1.0); CALCIUM 8.8 mg/dL (8.5-10.1); CO2 26 mmol/L (21-32); CREATININE 0.7 mg/dL (0.55-1.02); GLUCOSE,RANDOM 93 mg/dL (74-106); MAGNESIUM 1.9 mg/dL (1.8-2.4); PHOSPHOROUS 3.8 mg/dL (2.5-4.9); SGOT/AST 22 U/L (15-37); SGPT/ALT 23 U/L (12-78); TOT PROT 5.8 g/dl (6.4-8.2)
[2017-03-31 13:18] LABS: ALK PHOS 97 U/L (45-117); CPK 515 IU/L (26-192); TROPONIN I < 0.02 ng/ml (0.00-0.05)
[2017-03-31 14:04] VITALS: BP 150/109; PULSE 75
--- NOTE | 2017-03-31 16:19 | EKG ---
Test Reason : Blood Pressure : / mmHG Vent. Rate : 075 BPM Atrial Rate : 075 BPM P-R Int : 132 ms QRS Dur : 066 ms QT Int : 370 ms P-R-T Axes : 028 -10 045 degrees QTc Int : 413 ms NORMAL SINUS RHYTHM NORMAL ECG NO PREVIOUS ECGS AVAILABLE Confirmed by GERTRUDE PRADO MD ([id number]) on 03/31/2017 4:19:30 PM Referred By: Confirmed By:GERTRUDE PRADO MD
== END 2017-03-31 16:36 | disposition home or self-care (01) ==
LOC: JER 11:40
DX: O16.5 Unspecified maternal hypertension, complicating the puerperium (principal)
CPT/HCPCS: 36415; 71010-TC; 71275-TC; 80053; 82553; 83690; 83735; 84100; 84484; 85025; 85379; 93005; 93010; 99285-25